=== PATIENT | female | born 1985 | race American Indian/Alaskan Native ===

== ENCOUNTER 2017-03-07 09:57 | Emergency (ER) | payer SELFPAY ==
[2017-03-07 10:28] VITALS: BP 128/96
[2017-03-07] MEDS ORDERED: NACL 0.9% 1000 ML 1,000 ML IV ONE (10:28)
[2017-03-07 11:08] LABS: Basophils % (Auto) 0.7 % (0.0-1.8); Eosinophils % (Auto) 1.5 % (0.0-4.3); Hematocrit 45.8 % (30.3-42.9); Hemoglobin 14.8 gm/dl (10.1-14.3); Mean Corpuscular HGB Conc 32 % (30-34); Mean Corpuscular Hemoglobin 27 pg (28-32); Mean Corpuscular Volume 84 fl (79-97); Platelet Count 469 K/mm3 (140-440); Red Blood Count 5.43 M/mm3 (3.65-5.03); Red Cell Distribution Width 19.6 % (13.2-15.2); White Blood Count 4.8 K/mm3 (4.5-11.0)
[2017-03-07 11:16] LABS: Alanine Aminotransferase 55 units/L (7-56); Albumin 4.1 g/dL (3.9-5); Albumin/Globulin Ratio 1.1 %; Alkaline Phosphatase 78 units/L (35-129); Anion Gap 22 mmol/L; BUN/Creatinine Ratio 11.25; Blood Urea Nitrogen 9 mg/dL (7-17); Calcium 8.8 mg/dL (8.4-10.2); Carbon Dioxide 23 mmol/L (22-30); Chloride 97.6 mmol/L (98-107); Glucose 92 mg/dL (65-100); INR 1.02 (0.87-1.13); Lipase 31 units/L (13-60); Partial Thromboplastin Time 25.3 Sec. (24.2-36.6); Potassium 3.6 mmol/L (3.6-5.0); Sodium 139 mmol/L (137-145); Total Protein 7.9 g/dL (6.3-8.2)
--- NOTE | 2017-03-08 07:01 | ED Elopement Review ---
ED Pt Elopement review - Results review Lab results: Laboratory Tests 03/07/17 03/07/17 03/07/17 10:28 10:33 10:33 WBC 4.8 RBC 5.43 H Hgb 14.8 H Hct 45.8 H MCV 84 MCH 27 L MCHC 32 RDW 19.6 H Plt Count 469 H Lymph % (Auto) 43.8 H [place] % (Auto) 10.8 H Eos % (Auto) 1.5 Baso % (Auto) 0.7 Lymph # 2.1 [place] # 0.5 Eos # 0.1 Baso # 0.0 Seg Neutrophils % 43.2 Seg Neutrophils # 2.1 PT 13.3 INR 1.02 APTT 25.3 Sodium Potassium Chloride Carbon Dioxide Anion Gap BUN Creatinine Estimated GFR BUN/Creatinine Ratio Glucose Calcium Total Bilirubin AST ALT Alkaline Phosphatase Total Protein Albumin Albumin/Globulin Ratio Lipase Blood Type O POSITIVE Antibody Screen Not Reportable MATEUSZ Antibody Screen Negative 03/07/17 10:33 WBC RBC Hgb Hct MCV MCH MCHC RDW Plt Count Lymph % (Auto) [place] % (Auto) Eos % (Auto) Baso % (Auto) Lymph # [place] # Eos # Baso # Seg Neutrophils % Seg Neutrophils # PT INR APTT Sodium 139 Potassium 3.6 Chloride 97.6 L Carbon Dioxide 23 Anion Gap 22 BUN 9 Creatinine 0.8 Estimated GFR > 60 BUN/Creatinine Ratio 11.25 Glucose 92 Calcium 8.8 Total Bilirubin 0.50 AST 57 H ALT 55 Alkaline Phosphatase 78 Total Protein 7.9 Albumin 4.1 Albumin/Globulin Ratio 1.1 Lipase 31 Blood Type Antibody Screen MATEUSZ Antibody Screen - Call Back decision Pt Call Back Decision: No action required
== END 2017-03-07 10:34 | disposition left against medical advice (07) ==
LOC: ED 09:57
DX: K92.0 Hematemesis (principal); Z53.21 Procedure and treatment not carried out due to patient leaving prior to being seen by health care provider
CPT/HCPCS: 36415; 80053; 83690; 85025; 85610; 85730; 86850; 86900; 86901